=== PATIENT | male | born 1970 | race Caucasian/White ===

== ENCOUNTER → 2016-12-28 | Outpatient (CLI) | payer OTHER ==
[~2016-12-28] MED LIST: LORTAB 5/500 501 TAB PO; NO HOME MEDICATIONS
== END ==
LOC: COL.RAD 09:57
DX: S42.002A Fracture of unspecified part of left clavicle, initial encounter for closed fracture (principal); Z96.9 Presence of functional implant, unspecified

== ENCOUNTER 2020-05-30 10:44 | Emergency (ER) | payer MEDICARE ==
[~2020-05-30] VITALS: Ht 175.3 cm; Wt 100.0 kg
[2020-05-30 11:09] VITALS: TEMP 98.4
[2020-05-30 11:36] LABS: BASO # 0.1 (0.0-0.2); BASO % 0.8 % (0.0-2.0); EOS # 0.1 (0.0-0.7); EOS % 1.3 % (0-4.0); GRAN # 6.8 (1.4-6.5); GRAN % 75.3 % (42.2-75.2); HEMATOCRIT 45.4 % (42.0-52.0); HEMOGLOBIN 14.6 g/dl (13.5-18.0); LYMPH # 1.4 (1.2-3.4); LYMPH % 15.5 % (20.0-51.0); MEAN CELL VOLUME 88 fl (80.0-100.0); MEAN CORPUSCULAR HEMOGLOBIN 28 pg (27.0-31.0); MEAN CORPUSCULAR HGB CONC 32 g/dl (33.0-37.0); MEAN PLATELET VOLUME 10.5 fl (7.4-10.4); MONO # 0.6 (0.1-0.6); MONO % 6.9 % (1.7-9.3); PLATELET COUNT 242 K/mm3 (130-400); RED BLOOD COUNT 5.14 M/mm3 (4.20-5.60); REDCELL DISTRIBUTION WIDTH-CV 14.7 % (11.5-14.5)
[2020-05-30 11:43] LABS: ALANINE AMINOTRANSFERASE 95 U/L (4-49); ALBUMIN 3.9 gm/dL (3.5-5.0); ALKALINE PHOSPHATASE 77 U/L (50-136); ANION GAP 9 mmol/L (7-16); AST,SGOT 70 U/L (15-37); BILIRUBIN,TOTAL 0.8 mg/dL (0.0-1.0); BLOOD UREA NITROGEN 18 mg/dL (9-20); CARBON DIOXIDE 26 mmol/L (22-30); CHLORIDE 104 mmol/L (98-107); CREATININE, serum 0.81 (0.66-1.25); GLUCOSE 200 mg/dL (74-106); LIPASE 168 U/L (23-300); POTASSIUM 3.9 mmol/L (3.4-5.0); SODIUM 138 mmol/L (137-145); TOTAL PROTEIN 6.4 gm/dL (6.4-8.2)
[2020-05-30 11:45] LABS: INR 1.1 (0.8-3.0); PROTHROMBIN TIME 12.2 SECONDS (9.7-12.8)
[2020-05-30 11:47] LABS: PARTIAL THROMBOPLASTIN TIME 29.9 SECONDS (26.0-37.0)
[2020-05-30 12:01] LABS: TROPONIN-I < 0.012 ng/mL (0.000-0.035)
[2020-05-30] MEDS ORDERED: PRINIVIL10 MG PO ×2 (12:33)
[2020-05-30] MEDS ORDERED: LASIX 40MG TABL40 MG PO (12:33)
[2020-05-30] MEDS ORDERED: KLOR-CON20 MEQ PO ×2 (12:33)
[2020-05-30] MEDS ORDERED: NITROSTAT0.3 MG SL (12:33)
[2020-05-30 13:00] VITALS: BP 201/108; PULSE 90
[2020-07-04] MEDS ORDERED: PRINIVIL10 MG PO (09:25)
== END 2020-05-30 13:00 | disposition home or self-care (01) ==
LOC: COL.ER 10:44
PROVIDERS: Emergency Medicine
DX: J45.909 Unspecified asthma, uncomplicated (principal); I50.9 Heart failure, unspecified; F17.200 Nicotine dependence, unspecified, uncomplicated
CPT/HCPCS: J1885; J1940; J8540

== ENCOUNTER 2020-06-03 12:06 | Inpatient (IN) | payer MEDICARE ==
[2020-06-03] VITALS (289 sets, daily range): BP systolic 115–191; BP diastolic 79–114; PULSE 72–81; TEMP 89.1–98.7; O2SAT 87–96
[~2020-06-03] VITALS: Ht 175.3 cm; Wt 95.3 kg
[~2020-06-03 12:06] MED LIST changes: +KLOR-CON20 MEQ PO; +LASIX 40MG TABL40 MG PO; +NITROSTAT0.3 MG SL; +PRINIVIL10 MG PO
[2020-06-03 12:45] LABS: BASO # 0.1 (0.0-0.2); BASO % 0.5 % (0.0-2.0); EOS # 0.1 (0.0-0.7); EOS % 0.7 % (0-4.0); GRAN # 7.4 (1.4-6.5); GRAN % 77.9 % (42.2-75.2); HEMATOCRIT 47.2 % (42.0-52.0); HEMOGLOBIN 15.5 g/dl (13.5-18.0); LYMPH # 1.3 (1.2-3.4); LYMPH % 13.4 % (20.0-51.0); MEAN CELL VOLUME 86 fl (80.0-100.0); MEAN CORPUSCULAR HEMOGLOBIN 28 pg (27.0-31.0); MEAN CORPUSCULAR HGB CONC 33 g/dl (33.0-37.0); MEAN PLATELET VOLUME 10.1 fl (7.4-10.4); MONO # 0.7 (0.1-0.6); MONO % 7.2 % (1.7-9.3); PLATELET COUNT 259 K/mm3 (130-400); RED BLOOD COUNT 5.46 M/mm3 (4.20-5.60); REDCELL DISTRIBUTION WIDTH-CV 14.8 % (11.5-14.5)
[2020-06-03 12:47] LABS: ALBUMIN 4.1 gm/dL (3.5-5.0); BILIRUBIN,TOTAL 1.1 mg/dL (0.0-1.0); CALCIUM 8.9 mg/dL (8.4-10.2); CREATININE, serum 0.73 (0.66-1.25); PROTHROMBIN TIME 11.7 SECONDS (9.7-12.8); TOTAL PROTEIN 6.8 gm/dL (6.4-8.2)
[2020-06-03 12:59] LABS: TROPONIN-I 0.018 ng/mL (0.000-0.035)
--- NOTE | 2020-06-03 14:53 | NUR ---
SEE MERGE DOCUMENTATION FOR MEDICATION ADMINISTRATION TIMES AND INTRA/POST PROCEDURE SEDATION ASSESSMENTS. RIGHT HAND BARBEAU TEST POSITIVE.
[2020-06-03] MEDS ORDERED: PROVENTIL0.09 MG/A1 IH (15:00)
--- NOTE | 2020-06-03 20:00 | NUR ---
Assessment complete. Pt is AXO X3, denies having any pain at this time. Pt is sitting up in the bed watching TV at this time and he denies further needs. Call light within reach.
[2020-06-04] VITALS (256 sets, daily range): BP systolic 106–169; BP diastolic 86–107; PULSE 66–76; TEMP 97.5–98.6; O2SAT 71–97
[2020-06-04 06:00] LABS: HEMATOCRIT 48.3 % (42.0-52.0); HEMOGLOBIN 15.7 g/dl (13.5-18.0); MEAN CELL VOLUME 87 fl (80.0-100.0); MEAN CORPUSCULAR HEMOGLOBIN 28 pg (27.0-31.0); MEAN CORPUSCULAR HGB CONC 33 g/dl (33.0-37.0); MEAN PLATELET VOLUME 10.4 fl (7.4-10.4); PLATELET COUNT 260 K/mm3 (130-400); RED BLOOD COUNT 5.53 M/mm3 (4.20-5.60); REDCELL DISTRIBUTION WIDTH-CV 15.1 % (11.5-14.5)
[2020-06-04 06:14] LABS: CALCIUM 9.1 mg/dL (8.4-10.2); CHOLESTEROL RISK RATIO 4.4; CREATININE, serum 0.83 (0.66-1.25); POTASSIUM 3.7 mmol/L (3.4-5.0)
--- NOTE | 2020-06-04 07:27 | NUR ---
Bedside shift report given to SAMIA Kay.
--- NOTE | 2020-06-04 14:00 | NUR ---
Patient arrived to floor from ICU via wheelchair. Patient is alert and oriented, answers questions appropriately. Patient was oriented to room. Denies pain. Denies further needs, call light within reach.
--- NOTE | 2020-06-04 14:53 | NUR ---
Stapling Machine Operator met with the patient to complete intake. The patient lives independently in [place]. The patient denies DME use. The patient has been to [facility] in the past but has not been there in about three years. He states he tried to go there prior to the ED visit but there were not appointments until June. The patient receives medications from [facility]. The patient does not have advanced directives. DPOA-HC form provided. He is not and does not have any children. The patient's mother in 2003. The patient's father, Juan Mondragon lives in [place], patient not sure of the address. The patient plans to return home at discharge. SW contacted [facility]. Shalini reports the patient has an appointment already set up for July 02 at 0900 and there are no appointments any sooner. Discharge disposition: Home
--- NOTE | 2020-06-04 15:45 | NUR ---
Pt report and care handed off to SAMIA Aguirre. PT moved to room 357 via wheelchair without incident. PT is able to stand with a steady gait to bed.
--- NOTE | 2020-06-04 18:58 | NUR ---
Received report from Carla. Seen patient sitting in the recliner. He was asking for medicine to help him have bowel movement. Will call hospitalist.
--- NOTE | 2020-06-04 21:20 | NUR ---
Assesment done. Patient is alert and oriented. He's still sitting in the recliner. Informed him still trying to get hold of hospitalist for his stool medicine. He denies pain. With +1 edema on BLE. Lungs are clear.
[2020-06-05] VITALS: BP 131/81; PULSE 64; TEMP 97.9
[2020-06-05 05:30] VITALS: BP 147/87; PULSE 76; TEMP 97.6
--- NOTE | 2020-06-05 06:21 | NUR ---
Patient states he was able to sleep last night. He is anxious about the new medicine that he was taking and lab works taken this morning. Patient education provided.
[2020-06-05 06:44] LABS: BASO # 0.1 (0.0-0.2); BASO % 0.5 % (0.0-2.0); EOS # 0.2 (0.0-0.7); EOS % 1.3 % (0-4.0); GRAN # 9.1 (1.4-6.5); GRAN % 70.3 % (42.2-75.2); HEMATOCRIT 50.4 % (42.0-52.0); HEMOGLOBIN 16.7 g/dl (13.5-18.0); LYMPH # 2.2 (1.2-3.4); LYMPH % 17.3 % (20.0-51.0); MEAN CELL VOLUME 86 fl (80.0-100.0); MEAN CORPUSCULAR HEMOGLOBIN 29 pg (27.0-31.0); MEAN CORPUSCULAR HGB CONC 33 g/dl (33.0-37.0); MEAN PLATELET VOLUME 10.4 fl (7.4-10.4); MONO # 1.3 (0.1-0.6); MONO % 10.2 % (1.7-9.3); PLATELET COUNT 270 K/mm3 (130-400); RED BLOOD COUNT 5.86 M/mm3 (4.20-5.60); REDCELL DISTRIBUTION WIDTH-CV 14.8 % (11.5-14.5)
[2020-06-05 06:59] LABS: CALCIUM 9.2 mg/dL (8.4-10.2); CREATININE, serum 0.77 (0.66-1.25); MAGNESIUM 2.4 mg/dL (1.6-2.3); POTASSIUM 4.1 mmol/L (3.4-5.0)
[2020-06-05 08:30] VITALS: BP 141/88; PULSE 77; TEMP 98.5
[2020-06-05] MEDS ORDERED: GLUCOPHAGE1000 MG PO (10:00)
[2020-06-05] MEDS ORDERED: NICODERM C21 MG/PATC TD (10:09)
[2020-06-05] MEDS ORDERED: COREG 3.123.125 MG/T PO (10:09)
[2020-06-05] MEDS ORDERED: ENTRESTO 24 MG1 EACH PO ×2 (10:10)
[2020-06-05] MEDS ORDERED: LASIX 40MG TABL40 MG PO (10:11)
[2020-06-05] MEDS ORDERED: KLOR-CON20 MEQ PO (10:11)
[2020-06-05] MEDS ORDERED: COLACE 100100 MG/CAP PO (10:12)
[2020-06-05] MEDS ORDERED: MIRALAX PA17 GM/Dose PO (10:12)
--- NOTE | 2020-06-05 12:27 | NUR ---
First visit from the classified advertising supervisor. No needs right now.
[2020-06-05 12:37] VITALS: BP 138/83; PULSE 74; TEMP 97.9
--- NOTE | 2020-06-05 13:44 | NUR ---
Patient to discharge home today. Cardiac Cath Tech met with patient to discuss discharge planning. Patient's sister, Emily is at bedside. Patient is interested in Financial Assistance Application, TIARA provided and consulted Leigha Financial Counselor. TIARA discussed setting up primary care at a different PCP office as [facility] cannot get him in until June. Patient is agreeable to get set up with [facility]. TIARA contacted SAMIA Jacobs-CM at [facility] who will work on finding an accepting physician and will call patient to schedule follow up appointment. Patient is agreeable to this. Patient completed DPOA-HC paperwork and chose to designate his father, Juan Suarez and his sister, Emily. TIARA and RN Student, Natanael provided witness signature. TIARA provided original and copies to patient, then placed copy in patient's chart.
--- NOTE | 2020-06-05 14:15 | NUR ---
Primary nurse was assisted with [id number] patient care by [employer] student Mil Blanton and [employer] instructor Shreya Lancaster MSN, RN.
--- NOTE | 2020-06-05 15:30 | NUR ---
Patient is discharging home. Patient had several questions about his discharge and his diet. Answered all the questions. Explained the medications ordered and how often to take them. Gave several suggestions of foods to eat. Discharge instructions discussed with patient. No other questions verbalized. Patient is aware he needs to cancel his appointment with [facility] if he gets in sooner at [place]. Copies of discharge instructions sent with patient. All belongings packed up and sent with patient. INT's discontinued. Patient is aware he has medications to fern picker at [facility]. Patient walked out by Lilly FONTANEZ.
[2020-07-04] MEDS ORDERED: PRINIVIL10 MG PO (09:25)
== END 2020-06-05 15:30 | disposition home or self-care (01) | DRG 286 ==
LOC: COL.ER 12:06 → MEDICAL 13:07 → ICU 15:45 → MEDICAL 06-04 16:00
PROVIDERS: Emergency Medicine; Hospitalist; Physician Assistant; ADMIT Family Medicine
PROC: B2111ZZ Fluoroscopy of Multiple Coronary Arteries using Low Osmolar Contrast (ICD-10-PCS; principal; 2020-06-03)
PROC: 4A023N7 Measurement of Cardiac Sampling and Pressure, Left Heart, Percutaneous Approach (ICD-10-PCS; 2020-06-03)
DX: I11.0 Hypertensive heart disease with heart failure (principal); I50.21 Acute systolic (congestive) heart failure; I16.0 Hypertensive urgency; E11.65 Type 2 diabetes mellitus with hyperglycemia; F17.210 Nicotine dependence, cigarettes, uncomplicated; J44.9 Chronic obstructive pulmonary disease, unspecified; R51.9 Headache, unspecified; Z20.822 Contact with and (suspected) exposure to COVID-19; T46.3X5A Adverse effect of coronary vasodilators, initial encounter; Z96.641 Presence of right artificial hip joint; Z60.2 Problems related to living alone; Z82.49 Family history of ischemic heart disease and other diseases of the circulatory system; M19.90 Unspecified osteoarthritis, unspecified site; K59.00 Constipation, unspecified
CPT/HCPCS: 99223-AI; 99232-AI; 99239; C1769; J1644; J1650; J1815; J1940; J2250; J3010; Q9967

== ENCOUNTER → 2020-08-15 | Outpatient (CLI) | payer MEDICARE ==
[~2020-08-15] MED LIST changes: +COLACE 100100 MG/CAP PO; +COREG 3.123.125 MG/T PO; +ENTRESTO 24 MG1 EACH PO; +GLUCOPHAGE1000 MG PO; +MIRALAX PA17 GM/Dose PO; +NICODERM C21 MG/PATC TD; +PROVENTIL0.09 MG/A1 IH
== END ==
LOC: COL.PUL 08:00
DX: J44.1 Chronic obstructive pulmonary disease with (acute) exacerbation (principal)

== ENCOUNTER → 2020-12-12 | Outpatient (CLI) | payer MEDICARE | LOC: COL.RAD 10:52 | DX: M89.8X1 Other specified disorders of bone, shoulder (principal); S42.002A Fracture of unspecified part of left clavicle, initial encounter for closed fracture; Z98.1 Arthrodesis status ==

== ENCOUNTER → 2021-08-27 | Outpatient (CLI) | payer MEDICARE | LOC: COL.RAD 08:50 | DX: M51.34 Other intervertebral disc degeneration, thoracic region (principal) ==

== ENCOUNTER 2021-10-31 14:09 | Emergency (ER) | payer MEDICARE ==
[~2021-10-31] VITALS: Ht 175.3 cm; Wt 71.8 kg
[2021-10-31 14:15] VITALS: TEMP 97.9
[2021-10-31 14:46] LABS: COLLECTION METHOD CLEAN CATCH
[2021-10-31 14:49] LABS: BASO # 0.1 K/mm3 (0.0-0.2); BASO % 0.6 % (0.0-2.0); EOS # 0.1 K/mm3 (0.0-0.7); EOS % 1.2 % (0.0-4.0); GRAN # 5.1 K/mm3 (1.4-6.5); GRAN % 64.8 % (42.2-75.2); HEMATOCRIT 39.7 % (42.0-52.0); HEMOGLOBIN 13.5 g/dl (13.5-18.0); LYMPH # 2.1 K/mm3 (1.2-3.4); LYMPH % 26.5 % (20.0-51.0); MEAN CELL VOLUME 91 fl (80.0-100.0); MEAN CORPUSCULAR HEMOGLOBIN 31 pg (27-31); MEAN CORPUSCULAR HGB CONC 34 g/dl (33.0-37.0); MEAN PLATELET VOLUME 10.1 fl (7.4-10.4); MONO # 0.5 K/mm3 (0.1-0.6); MONO % 6.8 % (1.7-9.3); PLATELET COUNT 288 K/mm3 (130-400); RED BLOOD COUNT 4.38 M/mm3 (4.20-5.60); REDCELL DISTRIBUTION WIDTH-CV 14.1 % (11.5-14.5)
[2021-10-31 14:54] LABS: MUCOUS Present (NOT PRESENT); SQUAMOUS EPITHELIAL None Seen /hpf (0-10); URINE BACTERIA None Seen /hpf (NONE SEEN); URINE RBC None Seen /hpf (0-2)
[2021-10-31 14:55] LABS: URINE APPEARANCE Clear (CLEAR/HAZY); URINE BLOOD Negative (NEGATIVE); URINE COLOR Yellow (YELLOW); URINE GLUCOSE Negative (NEGATIVE); URINE KETONE Negative (NEGATIVE); URINE NITRATE Negative (NEGATIVE); URINE PROTEIN(semi-quant) Negative (NEGATIVE); URINE UROBILINOGEN 0.2 E.U/dL (0.2-1.0)
[2021-10-31 15:03] LABS: TRICYCLIC ANTIDEPRESS URINE NEGATIVE
[2021-10-31 15:09] LABS: ALBUMIN 3.9 gm/dL (3.5-5.0); BILIRUBIN,TOTAL 0.9 mg/dL (0.2-1.2); CALCIUM 9.5 mg/dL (8.4-10.2); CREATININE, serum 0.9 mg/dL (0.72-1.25)
[2021-10-31 15:19] VITALS: BP 111/69; PULSE 65
== END 2021-10-31 15:30 | disposition home or self-care (01) ==
LOC: COL.ER 14:09
PROVIDERS: Physician Assistant
DX: Z71.1 Person with feared health complaint in whom no diagnosis is made (principal); E11.9 Type 2 diabetes mellitus without complications; F17.210 Nicotine dependence, cigarettes, uncomplicated; Z79.84 Long term (current) use of oral hypoglycemic drugs

== ENCOUNTER → 2021-11-17 | Outpatient (CLI) | payer MEDICARE | LOC: COL.RAD 12:30 | DX: R91.8 Other nonspecific abnormal finding of lung field (principal); F17.210 Nicotine dependence, cigarettes, uncomplicated; R63.4 Abnormal weight loss | CPT/HCPCS: Q9967 ==

== ENCOUNTER → 2022-05-12 | Outpatient (CLI) | payer MEDICARE | LOC: COL.RAD 11:23 | DX: R91.8 Other nonspecific abnormal finding of lung field (principal) ==